=== PATIENT | male | born 1955 | race African-American/Black ===

== ENCOUNTER 2016-10-04 15:03 | Inpatient (IN) | payer OTHER ==
--- NOTE | ~2016-10-04 | DS ---
Unit #: [id number] #: [id number] Patient: WILMER HILL [id number] [address] [address] [id number] I MR#: [id number] NAME: WILMER HILL ROOM: 216 Age: 61 Sex: M Admission Date: 10/04/2016 : 1955 Discharge Date: Attending Physician: Leidy Panchal M.D. Primary Care Physician: Nikolai Jones M.D. DISCHARGE SUMMARY REASON FOR ADMISSION Urinary tract infection, testicular swelling, acute epididymitis/orchitis. HISTORY OF PRESENT ILLNESS The patient is a 61-year-old male with a prior history of CVA, hypertension, as well as HIV positive, who presented secondary to increased testicular swelling. He states about 48 hours ago he got on top of his bed, trying to open an air vent on the ceiling. He subsequently fell awkward onto the bed railing. He started noticing pain and/or discomfort in his testicular area, but he did not notice any swelling. Yesterday he stated that he was ambulatory. He had no troubles. He has not noticed any dysuria or any other symptoms. This morning when he awoke he said his pain was intractable. He was unable to put his clothes on secondary to discomfort and/or pain, and thus presented to the emergency room for further evaluation. While here he underwent routine laboratory studies which revealed a white blood cell count of 21.9 as well as an abnormal urinalysis, positive for nitrates and a BMP shows a potassium of 3.1, with a normal creatinine level. PAST MEDICAL HISTORY 1. Hypertension. 2. CVA approximately five years ago. 3. HIV positive. PAST SURGICAL HISTORY None. SOCIAL HISTORY Negative alcohol use. Negative tobacco use. Negative illicit drug use. FAMILY HISTORY Reviewed and noncontributory, not pertinent. ALLERGIES No known drug allergies. HOME MEDICATIONS Lisinopril and HIV medications. Medication reconciliation currently being verified. REVIEW OF SYSTEMS Unit #: [id number] #: [id number] Patient: WILMER HILL Please see history of present illness. Twelve points otherwise negative except for those positive noted in the history of present illness. PHYSICAL EXAMINATION GENERAL: The patient is a 61-year-old male lying comfortably, in no acute distress. VITALS: Temperature 100.7, pulse 85, respiratory rate 23, blood pressure 135/83. HEENT: Head exam atraumatic, normocephalic. Ears, tympanic membranes do not reveal any erythema or injection. NECK: Supple. LUNGS: Clear. HEART: S1 and S2 without murmur. ABDOMEN: Nontender and nondistended. EXTREMITIES: No evidence of any lower extremity edema. No calf tenderness. GENITOURINARY: Exam reveals bilateral testicular swelling with tenderness to palpation. EMERGENCY ROOM COURSE The patient received morphine, Zofran, Tylenol, Rocephin and Levaquin. DIAGNOSTIC STUDIES LABORATORY: Initial studies, please see above. ASSESSMENT 1. Acute epididymitis. 2. Acute orchitis. 3. Urinary tract infection. 4. Leukocytosis. 5. HIV positive. 6. Hypertension. 7. Prior history of CVA. PLAN Admission medical/surgical floor. Urology consultation. Verify home medications. Rocephin, Levaquin overnight. Check urine culture. Check blood cultures. Further evaluation by urology service in the a.m. for response and/or symptoms management. Possible intervention pending evaluation by urology. Plans have been reviewed with the patient in detail. He is well aware and agrees. The patient is full code. Dictated by... Tosha Olivia/susan TD: 10/05/2016 11:01 JOB #: [id number] Unit #: [id number] #: [id number] Patient: WILMER HILL DISCHARGE SUMMARY Page 1 of 1 X Leidy Panchal MD X DISCHARGE SUMMARY
--- NOTE | ~2016-10-04 | US115 ---
[facility] A Service of [facility] & [facility] RADIOLOGY TEXT RESULTS PATIENT: WILMER HILL LOCATION: [facility] 216-01 : 53 UNIT #: [id number] AGE: [address]: Leidy Panchal MD SEX: M ORDER DR: [id number] [facility] [address] [place], [place] [address] [id number] MR#: [id number] Acc #: [id number] NAME: WILMER HILL : 1955 SEX: M STUDY DATE/TIME: 10/04/2016 16:06 UNIT: [facility] ROOM: STUDY DESCRIPTION: US Scrotum and Contents Attending Physician: Frederick Ro D.O. Ordering Physician: Frederick Ro D.O. Primary Care Physician: Nikolai Jones M.D. MEDICAL IMAGING REPORT This report is preliminary unless electronic signature is present EXAM Scrotal ultrasound HISTORY SUPPLIED Left-sided testicular swelling and pain for 2 days. TECHNIQUE Color flow, phoenix-scale and Doppler spectral waveform analysis was performed of the scrotal sac and contents. FINDINGS The right testis measures 3.2 x 2.4 x 4.9 cm. There is normal blood flow to the right testicle. No surrounding fluid collections are seen. Small epididymal cyst is seen in the head measuring about 2 mm in greatest diameter. On the left side, the testicle measures 3.9 x 4.3 x 4.8 cm. The left epididymis is markedly enlarged. There is markedly increased blood flow in the left epididymis. There is trace fluid around the testicle. The left testicle has a striated appearance, which I think is probably reflective of increased vascular flow to the left testicle. CONCLUSION 1. Swelling of the left testicle with a tiny amount of peritesticular fluid within the scrotal sac, increased blood flow to the left testicle, marked enlargement of the left epididymis with markedly increased blood flow consistent with left-sided epididymoorchitis. 2. Tiny incidental 2 mm epididymal cyst on the right. Dictated by... Anselmo Trejo M.D. THIS IS AN ELECTRONICALLY VERIFIED REPORT Anselmo Trejo M.D. at 10/05/2016 7:10 AM [facility] A Service of [facility] RADIOLOGY TEXT RESULTS PATIENT: WILMER HILL LOCATION: [facility] 216-01 : 53 UNIT #: [id number] AGE: [address]: Leidy Panchal MD SEX: M ORDER DR: CELINA/charisma TD: 10/04/2016 18:02 JOB #: [id number] MEDICAL IMAGING REPORT Page 1 of 1 COPY
--- NOTE | ~2016-10-04 | CO ---
Unit #: [id number] #: [id number] Patient: WILMER FRAGA [id number] [address] [place], [place] [address] [id number] I MR#: [id number] NAME: WILMER FRAGA ROOM: 216 Age: 61 Sex: M Admission Date: 10/04/2016 : 1955 Attending Physician: Leidy Panchal M.D. Primary Care Physician: Nikolai Jones M.D. Consultation Date: 10/05/2016 CONSULTATION REPORT CHIEF COMPLAINT Left scrotal pain. HISTORY OF PRESENT ILLNESS Mr. Fraga is a 61-year-old gentleman, who was trying to hang up something at home and he fell and hit his scrotum, started having pain and swelling afterwards, pain worsened. He was evaluated in the emergency room, evaluated with ultrasound showing epididymo-orchitis on the left. The patient states the pain was severe, sharp, constant, better with pain medication, worse with certain movements. The patient also reports having blood in his urine and some burning when he urinate as well. He denied fever or chills. PAST MEDICAL HISTORY HIV positive, hypertension. MEDICATIONS Lisinopril, and he takes an antiretrovirals for his HIV status, Triumeq. ALLERGIES No known drug allergies. FAMILY HISTORY Noncontributory. REVIEW OF SYSTEMS Negative for 10 points except for left scrotal pain. PHYSICAL EXAMINATION VITAL SIGNS: He is afebrile. Vital signs stable. GENERAL: Alert and oriented x3, in no acute distress. HEENT: Extraocular movements are intact. NECK: Supple. CARDIAC: Benign. PULMONARY: Benign. ABDOMEN: Soft without rebound or guarding. No CVA tenderness bilaterally. : Descended testicles. No palpable masses. Left testicle and epididymis was swollen, tender, somewhat boggy. Prostate exam was deferred. EXTREMITIES: No clubbing, cyanosis, or edema of the extremities. NEUROLOGIC: Cranial nerves 2 through 10 are intact. DIAGNOSTIC STUDIES Unit #: [id number] #: [id number] Patient: WILMER FRAGA LABORATORY RESULTS: Creatinine is 0.9. White count is 19.3, which is elevated. Urinalysis; 3+ leukocytes, positive for nitrites, 1+ blood, 4+ bacteria. ASSESSMENT Gross hematuria, epididymo-orchitis. I reviewed his labs, films, CT scan of the abdomen and pelvis is pending urine culture. Continue IV antibiotics. He consents to undergo cystoscopy in the future. Thank for the kind referral. We will follow along with you. Dictated by... Deepak Conte M.D. WALLY/dee TD: 10/05/2016 23:38 JOB #: [id number] CONSULTATION REPORT Page 1 of 1 X Deepak Conte MD X CONSULTATION REPORT
--- NOTE | ~2016-10-04 | DS ---
Unit #: [id number] #: [id number] Patient: WILMER HILL [id number] [address] [place], [place] [address] [id number] I MR#: [id number] NAME: WILMER HILL ROOM: 216 Age: 61 Sex: M Admission Date: 10/04/2016 : 1955 Discharge Date: 10/06/2016 Attending Physician: Leidy Panchal M.D. Primary Care Physician: Nikolai Jones M.D. DISCHARGE SUMMARY REASON FOR ADMISSION Acute epididymitis/acute orchitis. HISTORY OF PRESENT ILLNESS/HOSPITAL COURSE Please see H and P dictated from 10/04/2016 for details of initial part of hospital stay. Through hospital course, patient underwent routine blood cultures, which were negative for any bacterial growth. We also had placed consultation to urology services secondary to testicular swelling and/or discomfort. Patient underwent CT abdomen and pelvis, which did reveal small bilateral simple renal cysts, but there was no other acute process which was noted. Ultimately, urine culture did reveal E. coli with sensitivity to Bactrim, Rocephin, as well as Macrobid. At the present time, patient states that his pain and/or discomfort has decreased and is much more tolerable. We are currently awaiting urology evaluation later this morning. Once patient is clear from a urological standpoint, he will be discharged home. He will be instructed to follow up with urology in approximately 2-3 week post discharge. He will be given prescriptions for both Bactrim as well as [place] in addition to his routine medications at home. It is noted that the patient's blood pressure has remained stable despite his Norvasc being held throughout hospital course. FINAL DISCHARGE DIAGNOSES 1. Acute epididymitis. 2. Acute orchitis. 3. Testicular swelling. 4. Urinary tract infection. 5. Human immunodeficiency virus positive. 6. History of hypertension being discharged on no medications. FINAL DISCHARGE MEDICATIONS 1. Triumeq tablet 1 p.o. every day. 2. [place]ren 5/325 one tablet p.o. q.6 p.r.n., #20, prescription given. 3. Bactrim DS 1 tablet p.o. b.i.d. x10 days. DISCHARGE CONDITION Stable. DISCHARGE DISPOSITION Unit #: [id number] #: [id number] Patient: WILMER HILL. Dictated by... Tosha Olivia/albert TD: 10/06/2016 13:18 JOB #: [id number] DISCHARGE SUMMARY Page 1 of 1 X Leidy Panchal MD X DISCHARGE SUMMARY
--- NOTE | ~2016-10-04 | CT3 ---
[facility] A Service of [facility] & [facility] RADIOLOGY TEXT RESULTS PATIENT: WILMER HILL LOCATION: A 216 : 53 UNIT #: [id number] AGE: [address]: Leidy Panchal MD SEX: M ORDER DR: [id number] [facility] [address] [place], [place] [address] [id number] I MR#: [id number] Acc #: [id number] NAME: WILMER HILL : 1955 SEX: M STUDY DATE/TIME: 10/05/2016 16:20 UNIT: [facility] ROOM: 216 STUDY DESCRIPTION: CT Abd and Pelv WWo Cont Attending Physician: Leidy Panchal M.D. Ordering Physician: Deepak Conte M.D. Primary Care Physician: Nikolai Jones M.D. MEDICAL IMAGING REPORT This report is preliminary unless electronic signature is present EXAM CT abdomen and pelvis without and with IV contrast, multiphase study. HISTORY Hematuria. Symptoms for [address] abdomen and pelvis was performed without and with IV contrast, including multiphase post IV contrast scans of the kidneys. This CT exam was performed with one or more of the following radiation dose reduction techniques: Automatic exposure control, adjustment of mA and/or kV according to patient size, and iterative reconstruction. CT ABDOMEN: Mild atelectasis in the posterior and inferior lower lobes bilaterally. Noncontrast images demonstrate a 1 mm nonobstructing stone in the mid-left kidney and no additional renal calculi. Mild parenchymal scarring in the lower poles of both kidneys and in the lateral mid kidneys bilaterally. The postcontrast scans demonstrate multiple small bilateral renal cysts, measuring up to approximately 5 mm in the right kidney and larger cysts in the left kidney, measuring up to 3.3 cm in the upper pole and 3.2 cm in the lateral lower pole. No solid or suspicious renal mass. No urinary obstruction. Incidental small hepatic calcified granulomas. No suspicious hepatic mass. No biliary dilatation. The gallbladder, spleen, pancreas, and adrenal glands are normal. Normal caliber abdominal aorta. No bowel dilatation. CT PELVIS: The precontrast images demonstrate no bladder calculi. On the postcontrast images, there is no abnormal soft tissue enhancement. There is mild diffuse urinary bladder wall thickening, which could be secondary to cystitis or bladder wall hypertrophy. No bladder mass. No free fluid. No inflammatory stranding in the pelvis. No bowel dilatation. IMPRESSION STS. [facility] A Service of [facility] RADIOLOGY TEXT RESULTS PATIENT: WILMER HILL LOCATION: [facility] 216- : 53 UNIT #: [id number] AGE: [address]: Leidy Panchal MD SEX: M ORDER DR: 1. No suspicious renal mass. 2. 1 mm nonobstructing stone in the mid-left kidney. No additional urinary calculi. 3. Multiple small bilateral simple renal cysts, the majority measuring less than 1 cm, with the largest simple cysts in the left kidney measuring 3.3 cm in the upper pole and 3.2 cm in the lower pole. 4. Mild multifocal parenchymal scarring in both kidneys. 5. Mild diffuse urinary bladder wall thickening could be due to cystitis or bladder wall hypertrophy. No bladder mass. 6. Incidental mild atelectasis in both lung bases. Dictated by... Ramiro Burkett M.D. THIS IS AN ELECTRONICALLY VERIFIED REPORT Ramiro Burkett M.D. at 10/05/2016 11:15 PM DFL/charisma TD: 10/05/2016 21:53 JOB #: [id number] MEDICAL IMAGING REPORT Page 1 of 1 COPY
[2016-10-04 16:01] LABS: BASOPHIL# 0.1 X10e3 (0-0.3); BASOPHIL% 0.3 % (0-2.5); DIFF IND YES; HEMATOCRIT 42.3 % (38.0-50.0); HEMOGLOBIN 13.9 gm/dL (13.0-16.0); LYMPHOCYTE# 0.4 X10e3 (1.0-3.5); LYMPHOCYTE% 1.6 % (17.0-45.0); MEAN CELL VOLUME 92.3 FL (83-96); MEAN CORPUSCULAR HEMOGLOBIN 30.3 PG (28-34); MEAN CORPUSCULAR HGB CONC 32.8 g/dL (30-36); MEAN PLATELET VOLUME 7.9 FL (6.5-11.5); MONOCYTE# 1.1 X10e3 (0-1.0); MONOCYTE% 5.1 % (3.0-12.0); NEUTROPHIL# 20.4 X10e3 (1.5-7.1); PLATELET COUNT 208 X10e3 (140-420); RED BLOOD COUNT 4.58 X10e (3.90-5.60); RED CELL DISTRIBUTION WIDTH 14.3 % (11.0-15.5); WHITE BLOOD COUNT 21.9 X10e3 (4.0-10.5)
[2016-10-04 16:15] LABS: ALBUMIN SERUM 3.4 g/dL (3.5-5.0); BILIRUBIN, DIRECT 0.2 mg/dL (0.0-0.2); BILIRUBIN,INDIRECT 1.1 mg/dL (0.0-0.9); BILIRUBIN,TOTAL 1.3 mg/dL (0.2-2.0); BUN/CREATININE RATIO 13.63; CALCIUM SERUM 8.5 mg/dL (8.4-10.2); CREATININE SERUM 1.1 mg/dL (0.6-1.4); GLOM FILT RATE Estimated 71.1 mL/min (>60); POTASSIUM 3.1 mmol/L (3.5-5.1); PROTEIN TOTAL SERUM 8.7 g/dL (6.0-8.3)
[2016-10-04 16:58] LABS: ANISOCYTOSIS SL; PLATELET ESTIMATE NORMAL (NORMAL)
[2016-10-04 17:13] LABS: URINE SOURCE CLEAN CATCH
[2016-10-04 17:41] LABS: URINE APPEARANCE CLOUDY; URINE BILIRUBIN NEG (NEG); URINE BLOOD 1+ (NEG); URINE COLOR DK YELLOW; URINE GLUCOSE NEG (NEG); URINE KETONE TRACE (NEG); URINE LEUKOCYTE ESTERASE 3+ (NEG); URINE NITRATE POS (NEG); URINE PH 5.5 (5-8); URINE PROTEIN 1+ (NEG); URINE SPECIFIC GRAVITY 1.025 (1.003-1.035)
[2016-10-04 17:44] LABS: CULTURE INDICATED? YES; URINE BACTERIA AUWI 4+ (NEGATIVE); URINE SQUAMOUS EPITHELIAL CELL NONE SEEN /[HPF]; UWBCS1 AUWI 200-300 (0-5)
[2016-10-04] MEDS ORDERED: NORVASC10 MG PO (18:03)
[2016-10-04] MEDS ORDERED: TRIUMEQ TABLET1 EACH PO (18:04)
[2016-10-05 06:17] LABS: BASOPHIL% 0.1 % (0-2.5); EOSINOPHIL% 0.2 % (0.0-7.0); HEMATOCRIT 37.8 % (38.0-50.0); HEMOGLOBIN 12.4 gm/dL (13.0-16.0); LYMPHOCYTE# 1.4 X10e3 (1.0-3.5); LYMPHOCYTE% 7.2 % (17.0-45.0); MEAN CELL VOLUME 92.5 FL (83-96); MEAN CORPUSCULAR HEMOGLOBIN 30.4 PG (28-34); MEAN CORPUSCULAR HGB CONC 32.8 g/dL (30-36); MONOCYTE# 1.5 X10e3 (0-1.0); MONOCYTE% 7.7 % (3.0-12.0); NEUTROPHIL# 16.3 X10e3 (1.5-7.1); NEUTROPHIL% 84.8 % (40-75); PLATELET COUNT 190 X10e3 (140-420); RED BLOOD COUNT 4.08 X10e (3.90-5.60); RED CELL DISTRIBUTION WIDTH 13.8 % (11.0-15.5); WHITE BLOOD COUNT 19.3 X10e3 (4.0-10.5)
[2016-10-05 06:18] LABS: DIFF IND NO
[2016-10-05 06:49] LABS: BUN/CREATININE RATIO 15.55; CALCIUM SERUM 7.8 mg/dL (8.4-10.2); CREATININE SERUM 0.9 mg/dL (0.6-1.4); POTASSIUM 3.2 mmol/L (3.5-5.1)
[2016-10-06 08:49] LABS: HEMATOCRIT 38.4 % (38.0-50.0); HEMOGLOBIN 12.6 gm/dL (13.0-16.0); MEAN CELL VOLUME 92.6 FL (83-96); MEAN CORPUSCULAR HEMOGLOBIN 30.3 PG (28-34); MEAN CORPUSCULAR HGB CONC 32.7 g/dL (30-36); MEAN PLATELET VOLUME 7.8 FL (6.5-11.5); RED BLOOD COUNT 4.15 X10e (3.90-5.60); RED CELL DISTRIBUTION WIDTH 13.8 % (11.0-15.5); WHITE BLOOD COUNT 12.5 X10e3 (4.0-10.5)
[2016-10-06 09:45] LABS: ALBUMIN SERUM 2.5 g/dL (3.5-5.0); BILIRUBIN,TOTAL 0.2 mg/dL (0.2-2.0); BUN/CREATININE RATIO 13.75; CALCIUM SERUM 7.9 mg/dL (8.4-10.2); CREATININE SERUM 0.8 mg/dL (0.6-1.4); GLOM FILT RATE Estimated 110.2 mL/min (>60); POTASSIUM 3.2 mmol/L (3.5-5.1); PROTEIN TOTAL SERUM 6.6 g/dL (6.0-8.3)
[2016-10-06] MEDS ORDERED: TYL325 PO (14:34)
[2016-10-06] MEDS ORDERED: LORTAB 5-325 M1 EACH PO (14:35)
[2016-10-06] MEDS ORDERED: BACTRIM DS TAB1 EACH PO (14:36)
== END 2016-10-06 16:55 | disposition home or self-care (01) | DRG 728 ==
LOC: CED 15:03 → C2A 18:10 → CEDOF 18:10 → CED 18:42 → CEDOF 18:42 → C2A 19:29 → CEDOF 19:29 → C2A 10-06 16:55
PROVIDERS: Emergency Medicine; Family Medicine
DX: N45.3 Epididymo-orchitis (principal); N28.1 Cyst of kidney, acquired; I10 Essential (primary) hypertension; N39.0 Urinary tract infection, site not specified; R31.0 Gross hematuria; W19.XXXA Unspecified fall, initial encounter; Z21 Asymptomatic human immunodeficiency virus [HIV] infection status; B96.20 Unspecified Escherichia coli [E. coli] as the cause of diseases classified elsewhere; N50.89 Other specified disorders of the male genital organs
CPT/HCPCS: 36415; 74178; 76870; 80048; 80053; 80076; 81003; 83605; 83690; 85025; 85027; 87040; 87086; 87088; 87186; 93976; 94760; 96374; 96375; 99285; J0696; J1956; J2270; J2405; Q9967